=== PATIENT | female | born 1995 | race Caucasian/White ===

== ENCOUNTER 2018-06-26 19:58 | Outpatient (CLI) | payer OTHER ==
[~2018-06-26] VITALS: Ht 165.1 cm; Wt 96.3 kg
[2018-06-26 20:03] VITALS: Ht 165.1 cm; Wt 96.3 kg
[2018-06-26 20:19] VITALS: BP 119/74; PULSE 90; RESP 17
[2018-06-26] MEDS ORDERED: FAMO20TA18 PO (20:24)
[2018-06-26] MEDS ORDERED: PREN1TAB13 PO (20:24)
[2018-06-26] MEDS ORDERED: CETI5TAB20 PO (20:24)
[2018-06-26] MEDS ORDERED: MONT5TAB13 PO (20:24)
--- NOTE | 2018-06-26 22:39 | TRIAGE ---
OB Triage Datetime Report Generated by CPN: 06/26/2018 22:39 Datetime: 06/26/2018 21:50 Stage of : OB Triage Labor Evaluation Frequency: X0 Monitor Mode: External Duration (sec)2399: X0 Pattern: Normal: <= 5 Contractions in 10 Minutes Resting Tone [place]: Relaxed Heart Rate FHR Baseline Rate: 140 Monitor Mode: External US Variability: Moderate 6-25 bpm Accelerations: 15X15 Decelerations: None Category: Category I Datetime: 06/26/2018 21:20 Stage of : OB Triage Labor Evaluation Frequency: x0 Monitor Mode: External Duration (sec)2399: x0 Pattern: Normal: <= 5 Contractions in 10 Minutes Resting Tone [place]: Relaxed Heart Rate FHR Baseline Rate: 140 Monitor Mode: External US Variability: Moderate 6-25 bpm Accelerations: 15X15 Decelerations: None Category: Category I Vaginal Exam Dilatation (cms): 0.0 Effacement (%): 0 Station: -3 Exam By: Prasanth RIDLEY Membrane Status: Intact Vaginal Bleeding: None Cervix, Consistency: Firm Cervix, Position: Posterior Datetime: 06/26/2018 20:42 Time of Arrival: 06/26/2018 19:54 EGA: 30.5 Arrived By: Wheelchair Arrived From: Home Chief Complaint: BILATERAL GROIN PAIN AND PELVIC PAIN SINCE SATURDAY 06/24 Movement: Present Contractions: Denies/Absent Rupture of Membranes: Denies Vaginal Bleeding: None Vaginal Discharge: Present Recent Sexual Intercouse: Denies Abdominal Trauma: Not Applicable Patient Complaints: Other Time Provider Notified: 06/26/2018 20:29 Provider Notified: DR. RAMIREZ Initial Plan: EFM, CALL OB Datetime: 06/26/2018 20:28 Stage of : OB Triage Labor Evaluation Frequency: X0 Monitor Mode: External Duration (sec)2399: X0 Pattern: Normal: <= 5 Contractions in 10 Minutes Resting Tone [place]: Relaxed Heart Rate FHR Baseline Rate: 145 Monitor Mode: External US Variability: Moderate 6-25 bpm Accelerations: 15X15 Decelerations: None Category: Category I Datetime: 06/26/2018 20:20 Stage of : OB Triage Maternal Assessment Level of Consciousness: Fully Conscious DTR's/Clonus: DTRs 2+; No Clonus Headache: Denies Blurred Vision: No Respiratory Effort: Unlabored; Regular Rhythm; Equal Expansion Breath Sounds, Left: Clear and Equal Breath Sounds, Right: Clear and Equal Nausea/Vomiting: Denies RUQ Epigastric Pain: Denies Lower Extremities Edema: None Degree: None Upper Extremities Edema: None Degree: None Facial Edema: None Temperature Route: Oral Fall Risk Assessment History of Falling: (0) No Secondary Diagnosis: (0) No Ambulatory Aid: (0) Bedrest/Nurse Assist IV Therapy: (0) No Gait: (0) Normal/Bedrest/Immobile Mental Status: (0) Oriented to Own Ability Fall Score: 0 Fall Risk Score Definition: No Risk: No action required Pain Assessment Pain Scale: 4 Pain Presence: Constant Pain Type: Dull; Ache Pain Location: Right Groin; Left Groin (Annotations: PELVIC PAIN) Pain Goal: 0 Pain Relief Measures: Comfort Measures Datetime: 06/26/2018 20:13 Monitor Mode: External Contraction Comments: APPLIED Monitor Mode: External US Comments: APPLIED
--- NOTE | 2018-06-26 23:13 | PN ---
Triage Information Date/Time 06/26/18 Reason for visit: bilateral groin pain since saturday after intercourse Weeks of Gestation 30w5d /Para Diabetes: none Hypertention: none Additional information pain alleviated by rest, aggrevated by motion Objective Vital Signs Date Temp Pulse Resp B/P (MAP) Pulse Ox O2 O2 Flow FiO2 Time Delivery Rate 06/26/18 98.1 90 17 119/74 Room Air 20:19 (89) Heart Rate: 140's Heart Rate Comments CAT I tracing Exam cl/long/-3 Results/Medications Results 24 hrs Laboratory Tests Test 06/26/18 20:15 Urine Color SILVER Urine Clarity CLOUDY A Urine pH 7.0 Urine Specific [place] 1.025 Urine Ketones NEGATIVE Urine Nitrite NEGATIVE Urine Bilirubin NEGATIVE Urine Urobilinogen NEGATIVE Urine Leukocyte Esterase 1+ H Urine Microscopic RBC 2 Urine Microscopic WBC 9 H Urine Squamous Epithelial Cells MODERATE Urine Mucus FEW A Urine Hemoglobin NEGATIVE Urine Glucose NEGATIVE Urine Total Protein NEGATIVE Imaging Results BPP 12/04 SHANDA 13 EFW 2143gm 97% Disposition: Discharge Assessment/Plan IUP 30w5d groin pain (ligament pain) P advise to be gentle with relation informed that groin pain is very common when to try to get up after keeping same position forawhile also instruct to have clinic check the result of urine culture on saturday and drink lot of water in the mean time MALOU MURPHY MD Jun 26, 2018 23:12
== END 2018-06-26 22:15 | disposition home or self-care (01) ==
LOC: OBT 19:58 → L-D 20:00 → OBT 22:15
PROVIDERS: ATTEND Specialist
DX: O26.893 Other specified pregnancy related conditions, third trimester (principal); Z3A.30 30 weeks gestation of pregnancy; R10.2 Pelvic and perineal pain
CPT/HCPCS: 76815; 76818; 81001; 87086; Z7500; G0463

== ENCOUNTER 2018-07-25 08:51 | Outpatient (CLI) | payer OTHER ==
[~2018-07-25] VITALS: Ht 162.6 cm; Wt 99.3 kg
[~2018-07-25 08:51] MED LIST: CETI5TAB20 PO; FAMO20TA18 PO; MONT5TAB13 PO; PREN1TAB13 PO
[2018-07-25 09:11] VITALS: Ht 162.6 cm; Wt 99.3 kg
[2018-07-25 09:12] VITALS: BP 121/68
[2018-07-25] MEDS ORDERED: LACTATED RINGER'S 1,000 ML IV SCH (10:00)
[2018-07-25] MEDS ORDERED: TERBUTALINE 1 MG/ML INJ SC ONE (10:00)
--- NOTE | 2018-07-25 14:54 | TRIAGE ---
OB Triage Datetime Report Generated by CPN: 07/25/2018 14:54 Datetime: 07/25/2018 13:33 Stage of : OB Triage Datetime: 07/25/2018 13:03 Labor Evaluation Frequency: 0 Monitor Mode: External Pattern: Normal: <= 5 Contractions in 10 Minutes Resting Tone [place]: Relaxed Heart Rate FHR Baseline Rate: 135 Monitor Mode: External US Variability: Moderate 6-25 bpm Accelerations: 10X10 Decelerations: None Category: Category I Pain Assessment Pain Scale: 0 Pain Presence: None/Denies Pain Type: N/A Pain Goal: 3 Pain Relief Measures: Comfort Measures Datetime: 07/25/2018 11:57 Labor Evaluation Frequency: 7-8 Monitor Mode: External Duration (sec)2399: 50-60 Pattern: Normal: <= 5 Contractions in 10 Minutes Resting Tone [place]: Relaxed Heart Rate FHR Baseline Rate: 135 Monitor Mode: External US Variability: Moderate 6-25 bpm Accelerations: None Decelerations: None Category: Category I Pain Assessment Pain Scale: 2 Pain Presence: Intermittent Pain Type: Cramping Pain Location: Abdomen Pain Goal: 3 Pain Relief Measures: Comfort Measures Datetime: 07/25/2018 10:56 Labor Evaluation Frequency: 0 Monitor Mode: External Pattern: Normal: <= 5 Contractions in 10 Minutes Resting Tone [place]: Relaxed Heart Rate FHR Baseline Rate: 140 Monitor Mode: External US Variability: Moderate 6-25 bpm Accelerations: 10X10 Decelerations: None Category: Category I Pain Assessment Pain Scale: 6 Pain Presence: Intermittent Pain Type: N/A Pain Goal: 3 Pain Relief Measures: Comfort Measures Datetime: 07/25/2018 09:53 Labor Evaluation Frequency: 2-5 Monitor Mode: External Duration (sec)2399: 30-50 Quality: Mild Pattern: Normal: <= 5 Contractions in 10 Minutes Resting Tone [place]: Relaxed Heart Rate FHR Baseline Rate: 135 Monitor Mode: External US Variability: Moderate 6-25 bpm Accelerations: 10X10 Decelerations: None Category: Category I Pain Assessment Pain Scale: 7 Pain Presence: Intermittent Pain Type: Cramping Pain Location: Abdomen Pain Goal: 3 Pain Relief Measures: Comfort Measures Pain Assessment Comments: WITH UC'S Datetime: 07/25/2018 09:31 Vaginal Exam Dilatation (cms): 1.0 Effacement (%): 40 Station: -3 Exam By: Abhishek JAYLYN Vaginal Bleeding: None Cervix, Consistency: Soft Cervix, Position: Posterior Presentation 'A': Cephalic Datetime: 07/25/2018 09:22 Stage of : OB Triage Datetime: 07/25/2018 09:09 Stage of : OB Triage Assessment Type: Triage Maternal Assessment Level of Consciousness: Fully Conscious DTR's/Clonus: DTRs 2+; No Clonus Headache: Denies Blurred Vision: No Respiratory Effort: Unlabored; Regular Rhythm; Equal Expansion Breath Sounds, Left: Clear and Equal Breath Sounds, Right: Clear and Equal Nausea/Vomiting: Denies RUQ Epigastric Pain: Denies Lower Extremities Edema: None Degree: None Upper Extremities Edema: None Degree: None Facial Edema: None Temperature Route: Oral Fall Risk Assessment History of Falling: (0) No Secondary Diagnosis: (0) No Ambulatory Aid: (0) Bedrest/Nurse Assist IV Therapy: (0) No Gait: (0) Normal/Bedrest/Immobile Mental Status: (0) Oriented to Own Ability Fall Score: 0 Fall Risk Score Definition: No Risk: No action required Monitor Mode: External (Annotations: initial placement ) Monitor Mode: External US (Annotations: initial placement ) Pain Assessment Pain Scale: 0 Pain Presence: None/Denies Pain Type: N/A Datetime: 07/25/2018 08:43 Time of Arrival: 07/25/2018 08:43 EGA: 34.6 Chief Complaint: having uc's q 15 minutes Movement: Present Contractions: Irregular Contractions: Q 15MIN Rupture of Membranes: Denies Vaginal Bleeding: None Vaginal Discharge: Denies Recent Sexual Intercouse: Denies Abdominal Trauma: Not Applicable Patient Complaints: Contractions Additional Patient Complaints: has us appiontment scheduled this am. Time Provider Notified: 07/25/2018 09:22 Provider Notified: JAMES Initial Plan: efm, call Datetime: 06/26/2018 22:15 Time of Arrival: 07/25/2018 08:43 EGA: 34.6 Arrived By: Ambulatory Arrived From: Home Chief Complaint: having uc's q 15 minutes Movement: Present Contractions: Occasional Contractions: q 15 minutes Rupture of Membranes: Denies Vaginal Bleeding: None Vaginal Discharge: Denies Recent Sexual Intercouse: Denies Abdominal Trauma: Not Applicable Patient Complaints: Contractions Additional Patient Complaints: has us appiontment scheduled this am. Initial Plan: efm, call Datetime: 06/26/2018 20:42 EGA: 30.5 Datetime: 06/26/2018 20:20 Fall Score: 0 Fall Risk Score Definition: No Risk: No action required
--- NOTE | 2018-07-25 18:28 | PN ---
Triage Information Date/Time 07/25/18 Reason for visit: Uterine contractions Weeks of Gestation 34w6d /Para primigravida Diabetes: none Hypertention: none Objective Vital Signs Date Temp Pulse Resp B/P (MAP) Pulse Ox O2 O2 Flow FiO2 Time Delivery Rate 07/25/18 97.9 121/68 09:12 (85) Heart Rate: 140's Contractions: < 5 Minutes Apart Exam VE /-2 Results/Medications Results 24 hrs Laboratory Tests Test 07/25/18 09:30 Urine Color YELLOW Urine Clarity SLIGHTLY CLOUDY A Urine pH 6.0 Urine Specific [place] 1.014 Urine Ketones NEGATIVE Urine Nitrite NEGATIVE Urine Bilirubin NEGATIVE Urine Urobilinogen NEGATIVE Urine Leukocyte Esterase 1+ H Urine Microscopic RBC 1 Urine Microscopic WBC 5 Urine Squamous Epithelial Cells MODERATE Urine Bacteria FEW A Urine Hemoglobin NEGATIVE Urine Glucose NEGATIVE Urine Total Protein NEGATIVE Medications IV hydration terbutaline 0.25 x2 Disposition: Discharge Assessment/Plan A [id number] PTL resolved R/O UTI P discharge home urine culture and sensitivities sent Rx cephalexin 500mg Q6hr #28 debo with perinatalogy apr,15 MALOU MURPHY MD Jul 25, 2018 18:28
== END 2018-07-25 13:56 | disposition home or self-care (01) ==
LOC: L-D 08:51 → OBT 08:51 → UNDOADMIN 14:00 → L-D 14:00
PROVIDERS: ATTEND Specialist
DX: O62.9 Abnormality of forces of labor, unspecified (principal); Z3A.34 34 weeks gestation of pregnancy
CPT/HCPCS: 81001; 87086; J3105; J7120; 36415; 96360; 96361; 96372; G0463

== ENCOUNTER 2018-07-29 20:13 | Outpatient (CLI) | payer OTHER ==
[~2018-07-29] VITALS: Ht 165.1 cm; Wt 97.7 kg
[~2018-07-29 20:13] MED LIST changes: -CETI5TAB20 PO; -FAMO20TA18 PO; -MONT5TAB13 PO
[2018-07-29 20:43] VITALS: Ht 165.1 cm; Wt 97.7 kg
[2018-07-29] MEDS ORDERED: MONT10TA21 PO (20:43)
[2018-07-29 20:44] VITALS: BP 121/56; PULSE 83; RESP 18
--- NOTE | 2018-07-29 21:46 | PN ---
Triage Information Date/Time Reason for visit: DFM Weeks of Gestation 35 weeks and 3 days /Para G1 Diabetes: none Hypertention: none Objective Vital Signs Date Temp Pulse Resp B/P (MAP) Pulse Ox O2 O2 Flow FiO2 Time Delivery Rate 07/29/18 98.8 83 18 121/56 Room Air 20:44 (77) Heart Rate: 130's Contractions: None Disposition: Discharge Assessment/Plan 22 years old 1 with single intrauterine at 35 weeks and 3 days with a TIERA of 08/30/2018 complaining of decreased movement. She denies nausea, vomiting, shortness of breath, chest pain, abdominal pain, headache, visual changes, vaginal bleeding or LOF. -FHR: No sign of metabolic acidosis- Category I -Contractions: None -Ultrasound performed: SHANDA 8.5 -She felt multiple movement during triage observation -Symptoms and sign of labor, preeclampsia, kick count discussed with patient, she voiced understanding. All of her questions answered. -Patient was discharged home in stable condition with the appropriate discharge instructions provided. I would like patient to have close follow-up with her primary physician or outpatient clinic in 1-2 days or return to triage for worsening symptoms or any other urgent concerns. FRANKO BUITRAGO Jul 29, 2018 21:46
--- NOTE | 2018-07-29 21:53 | TRIAGE ---
OB Triage Datetime Report Generated by CPN: 07/29/2018 21:53 Datetime: 07/29/2018 21:30 Stage of : OB Triage Maternal Assessment Level of Consciousness: Fully Conscious Labor Evaluation Frequency: 2UC/HR Monitor Mode: External Duration (sec)2399: 80-180 Quality: Mild Resting Tone [place]: Relaxed Heart Rate FHR Baseline Rate: 135 Monitor Mode: External US Variability: Moderate 6-25 bpm Accelerations: 15X15 Decelerations: None Category: Category I Pain Assessment Pain Scale: 0 Pain Goal: 3 Vaginal Exam Membrane Status: Intact Vaginal Bleeding: None Datetime: 07/29/2018 20:38 Assessment Type: Triage Maternal Assessment Level of Consciousness: Fully Conscious DTR's/Clonus: DTRs 2+; No Clonus Headache: Denies Blurred Vision: No Respiratory Effort: Unlabored; Regular Rhythm; Equal Expansion Breath Sounds, Left: Clear and Equal Breath Sounds, Right: Clear and Equal Nausea/Vomiting: Denies RUQ Epigastric Pain: Denies Lower Extremities Edema: None Degree: None Upper Extremities Edema: None Degree: None Facial Edema: None Fall Risk Assessment History of Falling: (0) No Secondary Diagnosis: (0) No Ambulatory Aid: (0) Bedrest/Nurse Assist IV Therapy: (0) No Gait: (0) Normal/Bedrest/Immobile Mental Status: (0) Oriented to Own Ability Fall Score: 0 Fall Risk Score Definition: No Risk: No action required Datetime: 07/29/2018 20:36 Monitor Mode: External Monitor Mode: External US Datetime: 07/29/2018 20:30 Time of Arrival: 07/29/2018 20:00 EGA: 35.3 Arrived By: Ambulatory Arrived From: Home Chief Complaint: PT. HERE NST/BPP FOR DFM Movement: Decreased Contractions: Denies/Absent Rupture of Membranes: Denies Vaginal Bleeding: None Vaginal Discharge: Denies Recent Sexual Intercouse: Denies Abdominal Trauma: Not Applicable Patient Complaints: None Time Provider Notified: 07/29/2018 20:00 Provider Notified: HADADIAN Initial Plan: NST/BPP Datetime: 07/25/2018 09:09 Fall Score: 0 Fall Risk Score Definition: No Risk: No action required Datetime: 07/25/2018 08:43 EGA: 34.6 Datetime: 06/26/2018 22:15 EGA: 34.6 Datetime: 06/26/2018 20:42 EGA: 30.5 Datetime: 06/26/2018 20:20 Fall Score: 0 Fall Risk Score Definition: No Risk: No action required
== END 2018-07-29 22:00 | disposition home or self-care (01) ==
LOC: OBT 20:13 → L-D 20:14 → OBT 22:00
PROVIDERS: ATTEND Specialist
DX: O36.8130 Decreased fetal movements, third trimester, not applicable or unspecified (principal); Z3A.35 35 weeks gestation of pregnancy
CPT/HCPCS: 76818; Z7500; G0463

== ENCOUNTER 2018-08-13 22:59 | Outpatient (CLI) | payer OTHER ==
[~2018-08-13] VITALS: Ht 165.1 cm; Wt 100.4 kg
[~2018-08-13 22:59] MED LIST changes: +MONT10TA21 PO
[2018-08-13 23:23] VITALS: BP 122/71; PULSE 99; RESP 18
[2018-08-13] MEDS ORDERED: FAMO20TA18 PO (23:29)
[2018-08-13] MEDS ORDERED: MOME13HF2 INHALATION (23:29)
--- NOTE | 2018-08-14 04:09 | TRIAGE ---
OB Triage Datetime Report Generated by CPN: 08/14/2018 04:08 Datetime: 08/13/2018 23:59 Vaginal Exam Dilatation (cms): 1.0 Effacement (%): 50 Station: -3 Exam By: ISH Vaginal Bleeding: None Cervix, Consistency: Moderate Cervix, Position: Midposition Datetime: 08/13/2018 23:30 Time of Arrival: 08/13/2018 22:50 EGA: 37.4 Arrived By: Wheelchair Arrived From: Home Chief Complaint: c/o cramping occas x 2days, nausea today, and "being too tired and sleeping 1 2 hrs last several days" Movement: Present Contractions: Occasional Rupture of Membranes: Denies Vaginal Bleeding: None Vaginal Discharge: Denies Recent Sexual Intercouse: Denies Abdominal Trauma: Not Applicable Patient Complaints: Cramping; Nausea; Other Time Provider Notified: 08/14/2018 00:10 Provider Notified: PRAVEENDAASMITA Initial Plan: EFM,UA,PO HYDRATION Datetime: 08/13/2018 23:08 Stage of : OB Triage Maternal Assessment Level of Consciousness: Fully Conscious Headache: Denies Blurred Vision: No Respiratory Effort: Unlabored Nausea/Vomiting: Present RUQ Epigastric Pain: Denies Facial Edema: None Labor Evaluation Frequency: placed Monitor Mode: External Resting Tone [place]: Relaxed Heart Rate FHR Baseline Rate: 140 Monitor Mode: External US Pain Assessment Pain Scale: 4 Pain Presence: Intermittent Pain Type: Cramping Pain Location: Abdomen Datetime: 07/29/2018 20:38 Fall Risk Assessment Fall Score: 0 Fall Risk Score Definition: No Risk: No action required Datetime: 07/29/2018 20:30 EGA: 35.3 Datetime: 07/25/2018 09:09 Fall Risk Assessment Fall Score: 0 Fall Risk Score Definition: No Risk: No action required Datetime: 07/25/2018 08:43 EGA: 34.6 Datetime: 06/26/2018 22:15 EGA: 34.6 Datetime: 06/26/2018 20:42 EGA: 30.5 Datetime: 06/26/2018 20:20 Fall Risk Assessment Fall Score: 0 Fall Risk Score Definition: No Risk: No action required
--- NOTE | 2018-08-14 11:28 | PN ---
Triage Information Date/Time August 14, 2018 Reason for visit: Exhaustion, fatigue, nausea low back pain and lower abdominal pain occasional contractions, Weeks of Gestation 37 weeks and 4 /Para G1 para 0 Diabetes: none Hypertention: none Additional information 2-year-old with IUP at 37 weeks and [address] days and care [address] Dr[address] quintero support [facility], [place], operated by [facility] presented to complain of mild lower abdominal pain and cramps as well as nausea, and fatigue today. She denies any leaking of fluid or vaginal bleeding or decreased movement. Antepartum course complicated by asthma in currently well controlled with inhaler Objective Vital Signs Date Temp Pulse Resp B/P (MAP) Pulse Ox O2 O2 Flow FiO2 Time Delivery Rate 08/13/18 98.6 99 18 122/71 97 Room Air 23:23 (88) Heart Rate: 130's Heart Rate Comments Appropriate for gestational age and category 1 Contractions: >10 Minutes Apart Exam general appearance.: Alert and oriented x4 appears to be in mild distress. Abdomen: Soft, nontender, no tenderness, no guarding, no rigidity no evidence of acute abdomen Fundal height consistent with dates Sterile vaginal examination by RN: 1 fingertip, closed and high NST: Category 1, Rare very small unremarkable variables After hydration occasional rare small irritability noted. Patient does not appear to be in pain or distress Oxygen saturation normal on room air. Patient does not appear to be in any acute distress Results/Medications Results 24 hrs Laboratory Tests Test 08/13/18 23:00 Urine Color YELLOW Urine Clarity SLIGHTLY CLOUDY A Urine pH 6.0 Urine Specific [place] 1.024 Urine Ketones NEGATIVE Urine Nitrite NEGATIVE Urine Bilirubin NEGATIVE Urine Urobilinogen NEGATIVE Urine Leukocyte Esterase NEGATIVE Urine Microscopic RBC 2 Urine Microscopic WBC 5 Urine Squamous Epithelial Cells MODERATE Urine Bacteria FEW A Urine Mucus MODERATE Urine Hemoglobin NEGATIVE Urine Glucose NEGATIVE Urine Total Protein NEGATIVE Imaging Results PROCEDURE: US biophysical profile. CLINICAL INDICATION: Contractions. well-being. TECHNIQUE: Multiple sonographic images of the uterus were obtained. The images were reviewed on a PACS workstation. COMPARISON: US PELVIS 07/29/2018 FINDINGS: There is a single live intrauterine gestation. heart rate is 163 beats per minute. The position is cephalic. The placenta is anterior, grade II. The SHANDA is 12.1 cm. Breathing Movement: 2 Gross Body Movement: 2 Tone: 2 Qualitative Amniotic Fluid Volume: 2 TOTAL: 8 IMPRESSION: 1. Single viable intrauterine gestation. 2. Biophysical profile = 8/8. 3. SHANDA = 12.1 cm. RPTAT: HFN Disposition: Discharge Assessment/Plan 37 weeks and 4 days Asthma completely . Stable with inhaler and asymptomatic No evidence of respiratory distress. Reported had nausea fatigue and occasional dizziness episodes . symptoms currently resolved Vital signs stable. Currently asymptomatic Denies any other symptoms no evidence of labor testing reassuring Strict labor precautions kick count discussed with the patient and close follow-up with monitoring testing twice a week as a scheduled with primary OB office discussed with the patient Advised to continue using inhaler as needed Adequate hydration discussed and rest Return to triage if the symptoms does not resolve kick counts strictly discussed with the patient and precaution was given. Patient verbalized understanding all above discussion and agreed to comply with instructions GRACIA JOYA MD Aug 14, 2018 11:28
== END 2018-08-14 02:43 | disposition home or self-care (01) ==
LOC: OBT 22:59 → L-D 23:07 → OBT 08-14 02:43
PROVIDERS: ATTEND Specialist
DX: O99.513 Diseases of the respiratory system complicating pregnancy, third trimester (principal); J45.909 Unspecified asthma, uncomplicated; Z3A.37 37 weeks gestation of pregnancy
CPT/HCPCS: 76818; 81001; 81003; Z7500; Z7610; G0463

== ENCOUNTER 2018-08-26 12:35 | Outpatient (CLI) | payer OTHER ==
[~2018-08-26] VITALS: Ht 165.1 cm; Wt 102.2 kg
[~2018-08-26 12:35] MED LIST changes: +FAMO20TA18 PO; +MOME13HF2 INHALATION
[2018-08-26 12:59] VITALS: Ht 165.1 cm; Wt 102.2 kg
[2018-08-26 13:00] VITALS: BP 120/72
--- NOTE | 2018-08-26 16:25 | PN ---
Triage Information Date/Time Reason for visit: Uterine contractions Weeks of Gestation 39+ /Para 1/0 Diabetes: none Hypertention: none Objective Vital Signs Date Temp Pulse Resp B/P (MAP) Pulse Ox O2 O2 Flow FiO2 Time Delivery Rate 08/26/18 98.0 120/72 13:00 (88) Heart Rate: 140's Contractions: None Results/Medications Results 24 hrs Laboratory Tests Test 08/26/18 12:30 08/26/18 12:35 Urine Color STRAW Urine Clarity CLEAR Urine pH 6.0 Urine Specific [place] 1.004 Urine Ketones NEGATIVE Urine Nitrite NEGATIVE Urine Bilirubin NEGATIVE Urine Urobilinogen NEGATIVE Urine Leukocyte Esterase NEGATIVE Urine Hemoglobin NEGATIVE Urine Glucose NEGATIVE Urine Total Protein NEGATIVE Membranes Rupture NEGATIVE Disposition: Discharge Assessment/Plan No LOF +FM No VB occasional CTXs BPP 10/ No cervical change after 2 hours -->Discharge with precautions -->Questions answered --->Precautions discussed --->follow up with provider RU MONTGOMERY M.D. Aug 26, 2018 16:25
== END 2018-08-26 16:43 | disposition home or self-care (01) ==
LOC: OBT 12:35 → L-D 12:36 → OBT 16:43
PROVIDERS: ATTEND Specialist
DX: O62.9 Abnormality of forces of labor, unspecified (principal); Z3A.39 39 weeks gestation of pregnancy
CPT/HCPCS: 76815; 76818; 81003; 84112; Z7500; G0463

== ENCOUNTER 2018-09-02 12:11 | Inpatient (IN) | payer OTHER ==
[~2018-09-02] VITALS: Ht 165.1 cm; Wt 103.5 kg
[2018-09-02 12:28] VITALS: Ht 165.1 cm; Wt 103.5 kg
[2018-09-02 12:29] VITALS: BP 135/69; PULSE 101; RESP 20
[2018-09-02] MEDS ORDERED: CARBOPROST 250 MCG INJ IM PRN (13:00)
[2018-09-02] MEDS ORDERED: BUTORPHANOL 2 MG INJ IV PRN (13:00)
[2018-09-02] MEDS ORDERED: OXYCODONE/ASPIRIN (4.88/325) TAB PO PRN (13:00)
[2018-09-02] MEDS ORDERED: IBUPROFEN 600 MG TAB PO PRN (13:00)
[2018-09-02] MEDS ORDERED: METHYLERGONOVINE 0.2 MG INJ IM PRN (13:00)
[2018-09-02] MEDS ORDERED: OXYTOCIN 30 UNITS/LR 500 ML IV SCH ×2 (13:00→18:00)
[2018-09-02] MEDS ORDERED: MISOPROSTOL 200 MCG TAB PR PRN (13:00)
[2018-09-02] MEDS ORDERED: OXYTOCIN 30 UNITS/LR 500 ML IV PRN (13:00)
[2018-09-02] MEDS ORDERED: AMPICILLIN 2 GM/NS (PMX) 100 ML IV ONE (13:00)
[2018-09-02] MEDS ORDERED: LIDOCAINE 1% (MPF) 30 ML INJ INJ PRN (13:00)
[2018-09-02] MEDS: LACTATED RINGER'S 1,000 ML IV SCH ×2 (14:36→20:32)
--- NOTE | 2018-09-02 16:28 | HP ---
Date/Time of Note Date/Time of Note DATE: 09/02/18 TIME: 16:26 OB - History Hx of Present Free Text/Dictation 22 YO G1 with IUP at 40.3 weeks with EDC 08/30/2018 who is here for IOL Care: Good Care Ultrasounds: Normal mid trimester US Obstetrical Complications: None Medical Complications: None Past Family/Social History * Past Medical, Surgical, Family and Obstetric Histories reviewed from chart. OB Admission Exam Vital Signs Vital Signs Vital Signs Date Temp Pulse Resp B/P (MAP) Pulse Ox O2 O2 Flow FiO2 Time Delivery Rate 09/02/18 97.8 101 20 135/69 Room Air 12:29 (91) Physical Exam HEENT: WNL Heart: Rhythm Normal Lungs: Clear, Equal Abdomen: WNL Extremities: Normal Reflexes: Normal Cervical Dilatation: 2cm Effacement: 50% Last 72 hours Lab Results CBC & BMP 09/02/18 14:15 OB Assessment/Plan Other Assessment: postdate here for IOL Induction Method: per Pitocin Protocol MAITE RAMIREZ MD September 02, 2018 16:28
[2018-09-02] MEDS: AMPICILLIN 1 GM/NS (PMX) 50 ML IV SCH ×2 (18:25→22:20)
[2018-09-03] MEDS: LACTATED RINGER'S 1,000 ML IV SCH ×5 (00:34→21:27)
[2018-09-03] MEDS: AMPICILLIN 1 GM/NS (PMX) 50 ML IV SCH ×6 (02:24→21:48)
[2018-09-03] MEDS ORDERED: FAMOTIDINE 20 MG TAB PO PRN (03:00)
--- NOTE | 2018-09-03 09:29 | QN ---
Documentation Comment no significant change on Pitocin NST reassuring 2 cm MAITE RAMIREZ MD September 03, 2018 09:29
--- NOTE | 2018-09-03 11:57 | PREAC ---
Date/Time of Note Date/Time of Note DATE: 09/03/18 TIME: 11:57 Anesthesia Eval and Record Evaluation Time Pre-Procedure Interview DATE: 09/03/18 TIME: 11:57 Age 22 Sex female NPO: 8 hrs Preoperative diagnosis Planned procedure labor epidural Past Medical History Past Medical History: Includes GI: Obesity Surgery & Anesthesia Issues No known issue Meds Anticoagulation: No Beta Mckinley within 24 hr: No Reason Beta Mckinley not given: Pt. not on B-Mckinley Reported Medications Mometasone-Formoterol (Dulera) 100-5 Mcg - 13 Gm Hfa.aer.ad, 2 PUFFS INHALATION BID, #1 INHALER 08/13/18 Famotidine* (Famotidine*) 20 Mg Tablet, 20 MG PO DAILY, #30 TAB 08/13/18 Montelukast Sodium* (Singulair*) 10 Mg Tablet, 10 MG PO QHS, #30 TAB 07/29/18 Pnv95/Ferrous Fumarate/FA ( Vitamins Tablet) 1 Each Tablet, 1 EACH PO, TAB 06/26/18 Current Medications Lactated Ringer's 1,000 ml @ 125 mls/hr Q8H IV Last administered on 09/03/18at 08:21; Admin Dose 125 MLS/HR; Start 09/02/18 at 12:32 Ampicillin 50 ml @ 100 mls/hr Q4H IV Last administered on 09/03/18at 10:20; Admin Dose 100 MLS/HR; Start 09/02/18 at 17:00 Butorphanol Tartrate (Stadol) 2 mg Q2H PRN IV .PAIN SCALE 6-10; Start 09/02/18 at 13:00 Lidocaine (Xylocaine 1% (Mpf)) 30 ml ONCE PRN INJ .EPISIOTOMY; Start 09/02/18 at 13:00 Oxytocin/Lactated Ringer's 500 ml @ 500 mls/hr ONCE POST IV ; Start 09/02/18 at 13:00 Oxytocin/Lactated Ringer's 500 ml @ 125 mls/hr POST IV ; Start 09/02/18 at 13:00 Ibuprofen (Motrin) 600 mg ONCE PRN PO .PAIN 1-5; Start 09/02/18 at 13:00 Oxycodone/Aspirin (Percodan) 2 tab ONCE PRN PO .PAIN 6-10; Start 09/02/18 at 13:00 Oxytocin/Lactated Ringer's 500 ml @ 0 mls/hr ONCE PRN IV .VAGINAL BLEEDING; Start 09/02/18 at 13:00 Methylergonovine Maleate (Methergine) 0.2 mg ONCE PRN IM .VAGINAL BLEEDING; Start 09/02/18 at 13:00 Carboprost Tromethamine (Hemabate) 250 mcg ONCE PRN IM .VAGINAL BLEEDING; Start 09/02/18 at 13:00 Misoprostol (Cytotec) 1,000 mcg ONCE PRN [place] .VAGINAL BLEEDING; Start 09/02/18 at 13:00 Oxytocin/Lactated Ringer's 500 ml @ 0 mls/hr Q0M IV Last administered on 09/02/18at 18:28; Admin Dose 1 MLS/HR; Start 09/02/18 at 18:00 Famotidine (Pepcid) 20 mg BID PRN PO NEEDED FOR HEARTBURN Last administered on 09/03/18at 03:40; Admin Dose 20 MG; Start 09/03/18 at 03:00 Meds reviewed: Yes Allergies Uncoded Allergies: seasonal allergies (Allergy, Intermediate, 06/26/18) Allergies Reviewed: Yes Labs/Studies Labs Reviewed: Reviewed by anesthesiologist Result Diagram: 09/02/18 1415 Laboratory Tests 09/02/18 14:15 Blood Bank Test 09/02/18 14:15 Antibody Identification Completed Antibody Screen POSITIVE Blood Type A NEGATIVE test: Positive Pre-procedure Exam Last vitals Vital Signs Date Temp Pulse Resp B/P (MAP) Pulse Ox O2 O2 Flow FiO2 Time Delivery Rate 09/02/18 97.8 101 20 135/69 Room Air 12:29 (91) Airway: Adequate mouth opening, Adequate thyromental dist Mallampati: Mallampati II Teeth: Normal Lung: Normal Heart: Normal ASA Physical Status ASA physical status: 2 Emergency: None Planned Anesthetic Neuraxial: Epidural Pre-operative Attestations Prior to commencing anesthesia and surgery, the patient was re-evaluated, there was verification of: *The patient's identity *The results of appropriate recent lab work and preoperative vital signs *The above evaluation not changing prior to induction *Anesthetic plan, risk benefits, alternative and complications discussed with patient/family; questions answered; patient/family understands, accepts and wishes to proceed. DEBORAH ELAINE September 03, 2018 11:57
[2018-09-03] MEDS ORDERED: KETOROLAC 30 MG INJ IV PRN (12:00)
[2018-09-03] MEDS ORDERED: DIPHENHYDRAMINE 50 MG INJ IV PRN (12:00)
[2018-09-03] MEDS ORDERED: ONDANSETRON 4 MG INJ IV PRN (12:00)
[2018-09-03] MEDS ORDERED: HYDROmorphONE 0.5 MG/0.5 ML SYG IV PRN ×2 (12:00)
[2018-09-03] MEDS ORDERED: NALOXONE (0.4 MG/ML) INJ IV PRN (12:00)
--- NOTE | 2018-09-03 19:45 | PAC ---
Date/Time of Note Date/Time of Note DATE: 09/03/18 TIME: 19:45 Post-Anesthesia Notes Post-Anesthesia Note Last documented vital signs Vital Signs Date Temp Pulse Resp B/P (MAP) Pulse Ox O2 O2 Flow FiO2 Time Delivery Rate 09/02/18 97.8 101 20 135/69 Room Air 12:29 (91) Activity: WNL Respiratory function: WNL Cardiovascular function: WNL Mental status: Baseline Pain reasonably controlled: Yes Hydration appropriate: Yes Nausea/Vomiting absent: Yes DEBORAH ELAINE September 03, 2018 19:45
[2018-09-03] MEDS: FENTAnyl 2MCG/ML-ROPIV 0.2% 100 ML BAG EPI SCH (20:57)
[2018-09-04] MEDS ORDERED: MINERAL OIL LIGHT 10 ML VIAL TOP PRN (01:30)
[2018-09-04] MEDS: AMPICILLIN 1 GM/NS (PMX) 50 ML IV SCH ×6 (02:00→21:22)
[2018-09-04] MEDS ORDERED: ACETAMINOPHEN 325 MG TAB PO PRN (02:00)
[2018-09-04] MEDS: FENTAnyl 2MCG/ML-ROPIV 0.2% 100 ML BAG EPI SCH (02:15)
[2018-09-04] MEDS: GENTAMICIN 80 MG/NS (PMX) 50 ML IVPB SCH ×4 (02:32→22:49)
[2018-09-04] MEDS: OXYTOCIN 30 UNITS/LR 500 ML IV SCH ×2 (07:28→11:40)
--- NOTE | 2018-09-04 07:46 | LDN ---
Date/Time of Note Date/Time of Note DATE: 09/04/18 TIME: 07:42 Delivery Summary 22 YO G1 with IUP at 40.4 weeks who is s/p of viable male infant. After delivery of the head the rest of the body delivered easily. I did not apply excessive traction. Placenta delivered spontaneously and intact. evaluation of the placenta confirmed intact placenta. Uterus was firm with cervix closed on exam. bleeding was normal. 1st degree vaginal laceration repaired in normal fashion. Anesthesia type: Epidural Estimated blood loss: 300 Sponge & Needle done & correct: Yes All needle counts correct: Yes Any foreign bodies felt in the: No Infant Delivery Information Sex Infant Sex: male Apgars 1 Minute: 9 5 Minute: 9 Suctioning Nose & mouth suctioned at sadaf: No Delee suction performed: No Umbilical Cord Umbilical cord with: 3 Vessels Cord presentations: nuchal cord Nuchal cord present X: 1 Cord Blood was obtained: Yes Mother & Baby Disposition Disposition Mom & Baby to Maternity; Good: Yes MAITE RAMIREZ MD September 04, 2018 07:46
[2018-09-04] MEDS ORDERED: BENZOCAINE 20% 56 ML SPRAY TOP PRN (08:00)
[2018-09-04] MEDS ORDERED: ONDANSETRON 4 MG TAB PO PRN (08:00)
[2018-09-04] MEDS ORDERED: LANOLIN HPA 1 PKT TOP PRN (08:00)
[2018-09-04] MEDS ORDERED: ONDANSETRON 4 MG INJ IV PRN (08:00)
[2018-09-04] MEDS ORDERED: SENNA/DOCUSATE NA (8.6MG/50MG) TAB PO PRN (08:00)
[2018-09-04] MEDS ORDERED: OXYTOCIN 30 UNITS/LR 500 ML IV PRN (08:00)
[2018-09-04] MEDS ORDERED: DIPHENHYDRAMINE 50 MG INJ IV PRN (08:00)
[2018-09-04] MEDS ORDERED: DIBUCAINE 1% 30 GM OINT TOP PRN (08:00)
[2018-09-04] MEDS ORDERED: MISOPROSTOL 200 MCG TAB PR PRN (08:00)
[2018-09-04] MEDS ORDERED: NA PHOSPHATE/BIPHOS 133 ML ENEMA PR PRN (08:00)
[2018-09-04] MEDS ORDERED: WITCH HAZEL/GLYCERIN PAD PR PRN (08:00)
[2018-09-04] MEDS ORDERED: DIPHENHYDRAMINE 25 MG CAP PO PRN (08:00)
[2018-09-04] MEDS ORDERED: HYDROCODONE/APAP (5/325) TAB PO PRN (08:00)
[2018-09-04] MEDS ORDERED: CARBOPROST 250 MCG INJ IM PRN (08:00)
[2018-09-04] MEDS ORDERED: MAGNESIUM HYDROXIDE 30ML CUP PO PRN (08:00)
[2018-09-04 11:04] VITALS: BP 121/68; PULSE 71; RESP 20
[2018-09-04] MEDS: IBUPROFEN 600 MG TAB PO SCH ×2 (12:00→17:36)
[2018-09-04] MEDS: LACTATED RINGER'S 1,000 ML IV* SCH ×2 (12:00→15:31)
[2018-09-04 14:00] VITALS: BP 127/69; PULSE 80; RESP 18
[2018-09-04] MEDS: SENNA/DOCUSATE NA (8.6MG/50MG) TAB PO SCH ×2 (14:00→21:22)
[2018-09-04 16:00] VITALS: BP 120/77; PULSE 54; RESP 18
[2018-09-04] MEDS: HYDROCODONE/APAP (5/325) TAB PO PRN (16:42)
[2018-09-04 19:45] VITALS: BP 121/80; PULSE 86; RESP 18
[2018-09-05] MEDS: IBUPROFEN 600 MG TAB PO SCH ×5 (00:52→23:36)
[2018-09-05] MEDS: AMPICILLIN 1 GM/NS (PMX) 50 ML IV SCH ×2 (00:52→05:40)
[2018-09-05 03:33] VITALS: BP 121/56; PULSE 71; RESP 18
[2018-09-05] MEDS: HYDROCODONE/APAP (5/325) TAB PO PRN (03:33)
[2018-09-05 08:30] VITALS: BP 115/72; PULSE 79; RESP 18
[2018-09-05] MEDS: SENNA/DOCUSATE NA (8.6MG/50MG) TAB PO SCH ×2 (09:36→21:41)
[2018-09-05 15:55] VITALS: BP 115/77; PULSE 81; RESP 18
--- NOTE | 2018-09-05 18:37 | QN ---
Documentation Comment no c/o no B.M vss afebrile fundus firm lochia min calf neg for tenderness A stable s/p P repeat cbc in am for wbc [id number] MALOU MURPHY MD September 05, 2018 18:37
[2018-09-05 19:30] VITALS: BP 115/65; PULSE 76; RESP 18
[2018-09-06 03:40] VITALS: BP 106/60; PULSE 74; RESP 17
[2018-09-06] MEDS: IBUPROFEN 600 MG TAB PO SCH ×2 (05:40→12:23)
[2018-09-06 07:30] VITALS: BP 120/60; PULSE 79; RESP 18
[2018-09-06] MEDS ORDERED: VARICELLA VACCINE LIVE/PF 1,350 UNIT/0.5 ML ML SC* ONE (09:00)
[2018-09-06] MEDS ORDERED: DIPHTH/TET/ACEL PERTUSS (ADULT) 0.5 ML VIAL IM* ONE (09:00)
[2018-09-06] MEDS ORDERED: MEASLES,MUMPS,RUBELLA VACCINE INJ SC* ONE (09:00)
[2018-09-06] MEDS: SENNA/DOCUSATE NA (8.6MG/50MG) TAB PO SCH (09:19)
--- NOTE | 2018-09-06 10:24 | PD.PPDC ---
BARREL MARKER Discharge Instruction Diagnosis Cevye2Hi Final Diagnosis: Rggmy1x s/p Condition Mrveo3Se Patient Condition: [id number] Stable Diet [id number] Diet: Hokqi7d Resume Regular Diet Activity/Restrictions [id number] Activity: Xfiup6l May Shower Sbezt5Ia Restrictions: Egbbz4p No Lifting No Sexual Activity Nothing in the Vagina No Pateros No Tampons, douche Follow-up Follow-up with Physician: 2 Return to clinic for Cogxs2Re SHIRT MAKER Instructions: [id number] Fever greater than 101 Chills Worsening abdominal pain Excessive Vaginal Bleeding More than 2 pads per hour Unable to tolerate diet [id number] OB Instructions: [id number] Breast Tenderness Blurried Vision Headache MALOU MURPHY MD September 06, 2018 10:24
--- NOTE | 2018-09-07 15:39 | DELSUM ---
Delivery Summary A-C Datetime Report Generated by CPN: 09/07/2018 15:38 DELIVERY PERSONNEL Polygraph Operator: Cleary, Marva MATERNAL INFORMATION Delivery Anesthesia: Epidural Medications in Delivery: PITOCIN 30 UNITS Delivery QBL (ml): 300 Placenta Cultured: Yes Maternal Complications: Maternal Fever Other Maternal Complications: TEMP OF 101.7 DURING LABOR LABOR SUMMARY EDC: 08/30/2018 00:00 No. Babies in Womb: 1 Attempted: No Labor Anesthesia: Epidural LABOR INFORMATION Reason for Induction: Postterm Onset of Labor: 09/03/2018 10:00 Complete Dilatation: 09/04/2018 03:05 Cervical Ripening Agents: Other Oxytocin: Induction Group B Beta Strep: Positive Antibiotics # of Doses: 13 Antibiotics Time of Last Dose: 09/04/2018 06:00 Steroids Given: None Reason Steroids Not Administered: Not Applicable MEMBRANES Membranes Rupture Method: Artificial Rupture of Membranes: 09/03/2018 11:12 Length of Rupture (hr): 19.83 Amniotic Fluid Color: Clear Amniotic Fluid Amount: Moderate Amniotic Fluid Odor: Normal STAGES OF LABOR Stage 1 hr: 17 Stage 1 min: 5 Stage 2 hr: 3 Stage 2 min: 57 Stage 3 hr: 0 Stage 3 min: 4 Total Time in Labor hr: 21 Total Time in Labor min: 6 VAGINAL DELIVERY Episiotomy: None Laceration Extension: First Degree Laceration Type: Vaginal Laceration Repair: Yes Initial Vag Sponge Count: 10 Final Vag Sponge Count: 10 Initial Vag Sharps Count: +11 Final Vag Sharps Count: 2 Sponge Count Correct: Yes; Vaginal Sweep Performed Sharps Count Correct: Yes BABY A INFORMATION Infant Delivery Date/Time: 09/04/2018 07:02 Method of Delivery: Vaginal Born in Route : No : N/A Forceps: N/A Vacuum Extraction: N/A Shoulder Dystocia : N/A SHOULDER DYSTOCIA BABY A Infant Delivery Date/Time: 09/04/2018 07:02 PRESENTATION/POSITION BABY A Presentation: Cephalic Cephalic Presentation: Vertex Breech Presentation: N/A PLACENTA INFORMATION BABY A Placenta Delivery Time : 09/04/2018 07:06 Placenta Method of Delivery: Expressed Placenta Status: Delivered SCORES BABY A Heart Rate 1 min: >100 bpm Resp Effort 1 min: Good Cry Reflex Irritability 1 min: Cough/Sneeze/Pulls Away Muscle Tone 1 min: Active Motion Color 1 min: Body [place], Extremit Blue Resuscitation Effort 1 min: Tactile Stimulation SCORE 1 MIN: 9 Heart Rate 5 min: >100 bpm Resp Effort 5 min: Good Cry Reflex Irritability 5 min: Cough/Sneeze/Pulls Away Muscle Tone 5 min: Active Motion Color 5 min: Body [place], Extremit Blue Resuscitation Effort 5 min: Tactile Stimulation SCORE 5 MIN: 9 INFORMATION BABY A Gestational Age at Delivery: 40.5 Gestational Status: Full Term- 39- 40.6 Weeks Infant Outcome : Liveborn Condition : Stable Sex: Male IDENTIFICATION/MEDS BABY A ID Band Number: [id number] ID Band Location: Right Leg; Left Arm Sensor Applied: Yes Sensor Number: [id number] Sensor Location : Cord Clamp Vitamin K Given : Not Given Erythromycin Given: Not Given WEIGHT/LENGTH BABY A Infant Birthweight (gm): 4025 Infant Weight (lb): 8 Infant Weight (oz): 14 Infant Length (in): 22.00 Infant Length (cm): 55.88 CORD INFORMATION BABY A No. Cord Vessels: 3 Nuchal Cord : Around Neck x1, Loose Cord Blood Taken: Yes Infant Suction: Mouth; Nose ASSESSMENT BABY A Infant Complications: Decreased Variability; Multiple Variable Decels Physical Findings at Delivery: Molding of the Head Infant Respirations: Appears Normal Big Data Developer/ALS Called : Yes Care By: VANESSA Transferred To: Remains with Mother
== END 2018-09-06 15:38 | disposition home or self-care (01) | DRG 807 ==
LOC: L-D 12:11 → OBT 12:11 → L-D 12:12 → OBT 12:12 → L-D 14:22 → EDSTATUS 19:00 → PP1 09-04 13:58
PROVIDERS: ADMIT Specialist; ATTEND Specialist
PROC: 3E033VJ Introduction of Other Hormone into Peripheral Vein, Percutaneous Approach (ICD-10-PCS; 2018-09-03)
PROC: 10E0XZZ Delivery of Products of Conception, External Approach (ICD-10-PCS; principal; 2018-09-04)
PROC: 0HQ9XZZ Repair Perineum Skin, External Approach (ICD-10-PCS; 2018-09-04)
DX: O48.0 Post-term pregnancy (principal); O69.81X0 Labor and delivery complicated by cord around neck, without compression, not applicable or unspecified; Z37.0 Single live birth; Z3A.40 40 weeks gestation of pregnancy
CPT/HCPCS: 36415; 62322; 76815; 80048; 82803; 83605; 85025; 85610; 85730; 86592; 86850; 86870; 86900; 86901; 87340; 88307; 90716; 99464; J0290; J1580; J2405; J2590; J3010; J7120